=== PATIENT | female | born 1960 | race Caucasian/White ===

== ENCOUNTER 2018-04-25 08:36 | Emergency (ER) | payer MEDICAID ==
[~2018-04-25] VITALS: Ht 172.7 cm; Wt 95.0 kg
[~2018-04-25 08:36] MED LIST: LISI-170 PO; OXYC5TAB2 PO; PANT40TA5 PO; TRAZ-137 PO
[2018-04-25 08:43] VITALS: BP 151/97
[2018-04-25] MEDS ORDERED: ONDANSETRON ODT 4 MG ONE (09:14)
[2018-04-25] MEDS ORDERED: HYDROmorphone 2 MG/ML, 1ML ONE (09:14)
[2018-04-25] MEDS ORDERED: ONDANSETRON 2MG/ML, 2ML IVPush ONE (09:30)
[2018-04-25] MEDS ORDERED: HYDROmorphone 2 MG/ML, 1ML IM ONE (09:30)
[2018-04-25] MEDS ORDERED: ONDANSETRON ODT 4 MG PO ONE (09:30)
== END 2018-04-25 10:25 | disposition home or self-care (01) ==
LOC: ED 09:56
DX: M79.662 Pain in left lower leg (principal); Z76.0 Encounter for issue of repeat prescription; Z96.661 Presence of right artificial ankle joint; I10 Essential (primary) hypertension
CPT/HCPCS: 93971; 96372; 99284; J1170; Q0162

== ENCOUNTER 2019-11-02 01:16 | Emergency (ER) | payer MEDICAID ==
[~2019-11-02] VITALS: Ht 167.6 cm; Wt 96.4 kg
[~2019-11-02 01:16] MED LIST changes: -TRAZ-137 PO; +TRAZ-175 PO
[2019-11-02] MEDS ORDERED: MORPHINE SULFATE 4 MG/ML, 1ML ONE ×2 (01:26→03:04)
[2019-11-02] MEDS ORDERED: ONDANSETRON 2MG/ML, 2ML ONE (01:26)
[2019-11-02] MEDS ORDERED: ONDANSETRON 2MG/ML, 2ML IVPush ONE (01:30)
[2019-11-02] MEDS: MORPHINE SULFATE 4 MG/ML, 1ML IVPush PRN ×2 (01:38→03:05)
--- NOTE | 2019-11-02 01:40 | NUR ---
Patient BIB [facility] c/o RUQ abd pain. Patient states the pain started in the epigastric area yesterday. Patient has a hx of ulcers. Tonight, patient heard a pop and the pain moved to the RUQ. Denies N/V/D. Patient is in NAD. Respirations even and unlabored.
[2019-11-02 01:41] LABS: BASOPHILS # (AUTO) 0.02 x10^3/uL (0-0.1); BASOPHILS % (AUTO) 0 % (0-1); EOSINOPHILS # (AUTO) 0.01 x10^3/uL (0-0.4); EOSINOPHILS % (AUTO) 0 % (1-7); LYMPHOCYTES # (AUTO) 0.58 x10^3/uL (1-3.4); LYMPHOCYTES % (AUTO) 6 % (22-44); MD NO; MEAN CORPUSCULAR HEMOGLOBIN 33.1 pg (27.0-34.8); MEAN CORPUSCULAR VOLUME 97.2 fL (80-100); MEAN PLATELET VOLUME 6.7 fL (7.4-10.4); MONOCYTES # (AUTO) 0.55 x10^3/uL (0.2-0.8); MONOCYTES % (AUTO) 6 % (2-9); NEUTROPHILS # (AUTO) 8.83 x10^3/uL (1.8-6.8); NEUTROPHILS % (AUTO) 89 % (42-75); PLATELET COUNT 270 x10^3/uL (130-400); RED BLOOD COUNT 4.36 x10^6/uL (3.82-5.3); RED CELL DISTRIBUTION WIDTH 12.3 % (9.6-15.2)
--- NOTE | 2019-11-02 01:46 | NUR ---
US in room.
[2019-11-02 01:52] LABS: ALANINE AMINOTRANSFERASE 60 U/L (12-78); ALBUMIN 3.6 g/dL (3.4-5.0); ANION GAP 11 mmol/L (5-15); CALCIUM 9.2 mg/dL (8.5-10.1); CHLORIDE 103 mmol/L (98-107); CREATININE 0.85 mg/dL (0.55-1.02)
[2019-11-02 01:55] LABS: ALKALINE PHOSPHATASE 99 U/L (45-117); BILIRUBIN,TOTAL 0.9 mg/dL (0.2-1.0); TOTAL PROTEIN 7.8 g/dL (6.4-8.2)
[2019-11-02] MEDS ORDERED: ALEN70TA6 PO (02:46)
[2019-11-02 03:06] VITALS: BP 130/83
[2019-11-02 03:26] LABS: MICROSCOPIC INDICATED
--- NOTE | 2019-11-02 04:03 | NUR ---
Discharge instructions given. All questions and concerns addressed. Patient ambulatory with a steady gait. Belongings with patient.
== END 2019-11-02 04:04 | disposition home or self-care (01) ==
LOC: ED 03:53
DX: K80.20 Calculus of gallbladder without cholecystitis without obstruction (principal); N28.1 Cyst of kidney, acquired; R10.13 Epigastric pain; M81.0 Age-related osteoporosis without current pathological fracture; F17.210 Nicotine dependence, cigarettes, uncomplicated
CPT/HCPCS: 36415; 71045; 76700; 80053; 81001; 83690; 85025; 87086; 96374; 96375; 96376; 99285; 99406; J2270; J2405

== ENCOUNTER → 2019-11-24 | Outpatient (CLI) | payer MEDICAID ==
[~2019-11-24] MED LIST changes: +ALEN70TA6 PO; +CALCIUM, MAG, ZINC PO; +CHOL10003 PO; +MULT-516 PO; +OMEG-170 PO; +POTASSIUM PO; +VITAMIN B12 PO; +[UNRECOGNIZED DRUG - OTHER] PO
== END | disposition home or self-care (01) ==
LOC: STAR 10:26
PROVIDERS: ATTEND Surgery
DX: Z01.818 Encounter for other preprocedural examination (principal)
CPT/HCPCS: 93005

== ENCOUNTER 2019-11-28 10:26 | Day surgery (SDC) | payer MEDICAID ==
[~2019-11-28] VITALS: Ht 170.2 cm; Wt 93.6 kg
[2019-11-28] MEDS ORDERED: CHLORHEXIDINE 15 ML UDC ONE (10:50)
[2019-11-28 10:58] VITALS: BP 136/99
[2019-11-28] MEDS ORDERED: LACTATED RINGERS 1,000 ML IV SCH (11:00)
[2019-11-28] MEDS ORDERED: CHLORHEXIDINE 15 ML UDC MM ONE (11:00)
[2019-11-28] MEDS ORDERED: BUPIVACAINE/PF-EPI 0.25% 1:200K ONE (11:42)
[2019-11-28] MEDS ORDERED: MIDAZOLAM 1 MG/ML, 2ML ONE (12:40)
[2019-11-28] MEDS ORDERED: FENTANYL PF 250 MCG/5ML ONE (12:40)
[2019-11-28] MEDS ORDERED: ONDANSETRON 2MG/ML, 2ML ONE ×2 (12:52→13:37)
[2019-11-28] MEDS ORDERED: ROCURONIUM 10MG/ML,5ML ONE (12:52)
[2019-11-28] MEDS ORDERED: CEFAZOLIN 1,000 MG ONE ×2 (12:52→12:59)
[2019-11-28] MEDS ORDERED: SUCCINYLCHOLINE 20 MG/ML, 10ML ONE (12:52)
[2019-11-28] MEDS ORDERED: DEXAMETHASONE 4 MG/ML, 1ML ONE ×2 (12:52→12:58)
[2019-11-28] MEDS ORDERED: PROPOFOL 10 MG/ML, 20ML ONE (12:52)
[2019-11-28] MEDS ORDERED: SUGAMMADEX 200 MG/2 ML IVPush ONE (13:37)
[2019-11-28] MEDS ORDERED: ACETAMINOPHEN 650 MG/20.3 ML UDC ONE (13:54)
[2019-11-28] MEDS ORDERED: OXYcodone 5 MG/5 ML ORAL.SOL UDC ONE ×2 (13:54→14:32)
[2019-11-28] MEDS ORDERED: FENTANYL PF 100 MCG/2ML ONE ×3 (13:54→14:40)
[2019-11-28] MEDS ORDERED: ACETAMINOPHEN 325 MG TABLET ONE (13:54)
[2019-11-28] MEDS: FENTANYL PF 100 MCG/2ML IV PRN ×5 (13:55→14:45)
[2019-11-28] MEDS: OXYcodone 5 MG/5 ML ORAL.SOL UDC PO PRN ×2 (14:15→14:45)
[2019-11-28] MEDS ORDERED: ALBUTEROL SULFATE 2.5 MG/3 ML NPPB PRN (14:30)
[2019-11-28] MEDS ORDERED: ONDANSETRON 2MG/ML, 2ML IVPush PRN (14:30)
[2019-11-28] MEDS ORDERED: DIPHENHYDRAMINE 50 MG/ML, 1ML IVPush PRN (14:30)
[2019-11-28] MEDS ORDERED: PROMETHAZINE 25 MG/ML, 1ML IVPush PRN (14:30)
[2019-11-28] MEDS ORDERED: ACETAMINOPHEN 325 MG TABLET PO PRN (14:30)
[2019-11-28] MEDS ORDERED: MIDAZOLAM 1 MG/ML, 2ML IV PRN (14:30)
[2019-11-28] MEDS ORDERED: HYDROmorphone 1 MG/ML, 1ML INJ IVPush PRN (14:30)
[2019-11-28] MEDS ORDERED: MEPERIDINE/PF 25MG/0.5ML IVPush PRN (14:30)
[2019-11-28] MEDS ORDERED: LABETALOL 5MG/ML, 20ML IV PRN (14:30)
[2019-11-28] MEDS ORDERED: hydrALAzine 20 MG/ML, 1ML IV PRN (14:30)
[2019-11-28] MEDS ORDERED: DIAZEPAM 5 MG/ML, 2ML IVPush PRN (14:30)
[2019-11-28] MEDS ORDERED: EPHEDRINE 50 MG/ML, 1ML IVPush PRN (14:30)
[2019-11-28] MEDS ORDERED: PROMETHAZINE 12.5 MG SUPP PR PRN (14:30)
== END 2019-11-28 16:10 | disposition home or self-care (01) ==
LOC: OR 10:26
PROVIDERS: ATTEND Surgery
DX: K80.12 Calculus of gallbladder with acute and chronic cholecystitis without obstruction (principal); Z11.59 Encounter for screening for other viral diseases; K82.8 Other specified diseases of gallbladder; E66.9 Obesity, unspecified; M81.0 Age-related osteoporosis without current pathological fracture; F17.210 Nicotine dependence, cigarettes, uncomplicated; Z68.32 Body mass index [BMI] 32.0-32.9, adult; Z79.899 Other long term (current) drug therapy
CPT/HCPCS: 36415; 47562; 87635; 88304; C1729; C1760; J0330; J0690; J1100; J2250; J2405; J2704; J3010; J7120